=== PATIENT | male | born 1980 | race Caucasian/White ===

== ENCOUNTER 2024-03-02 19:39 | Emergency (ER) | payer OTHER, MEDICARE ==
--- NOTE | 2024-03-02 20:28 | ED ---
Extremity Problem HPI - General Source: patient, RN notes reviewed Mode of arrival: ambulatory Limitations: language barrier, physical limitation <Laura Zayas - Last Filed: 03/02/24 20:27> <Santana Cheng - Last Filed: 03/03/24 00:10> - General Chief complaint: Extremity Problem,Nontraumatic Stated complaint: Finger pain Time Seen by Provider: 03/02/24 19:59 - History of Present Illness Initial comments: Quick [id number] male presenting with right third and fourth digit pain on right hand for several months. States he cannot flex his fingers. (Laura Zayas) 43-year-old male presented to the ED with a chief complaint of finger pain. Patient reports for the past few months has had pain of his right fourth finger and decreased range of motion of it. Reports that he is unable to fully flex his finger. No fever or chills. No injury or trauma. No other complaints at this time. Of note, patient is deaf however is able to read lips. (Santana Cheng) - Related Data Previous Rx's Medication Instructions Recorded Ibuprofen [Motrin] 600 mg PO Q8HR PRN #30 tab 03/03/24 Allergies Allergy/AdvReac Type Severity Reaction Status Date / Time No Known Allergies Allergy Verified 03/02/24 19:58 Review of Systems ROS Other: All systems not noted in ROS Statement are negative. <Laura Zayas - Last Filed: 03/02/24 20:27> ROS Other: All systems not noted in ROS Statement are negative. <Santana Cheng - Last Filed: 03/03/24 00:10> ROS Statement: Those systems with pertinent positive or pertinent negative responses have been documented in the HPI. Past Medical History Past Medical History: Hearing Disorder / Deafness History of Any Multi-Drug Resistant Organisms: None Reported Past Surgical History: No Surgical Hx Reported Past Psychological History: No Psychological Hx Reported Smoking Status: Never smoker Past Alcohol Use History: None Reported Past Drug Use History: None Reported <Laura Zayas - Last Filed: 03/02/24 20:27> General Exam Limitations: language barrier, physical limitation <Laura Zayas - Last Filed: 03/02/24 20:27> Limitations: language barrier General appearance: alert, in no apparent distress Neck exam: Present: normal inspection Respiratory exam: Present: normal lung sounds bilaterally Cardiovascular Exam: Present: regular rate GI/Abdominal exam: Present: soft Extremities exam: Present: other (Right fourth finger difficulties fully flexing actively however full passive flexion. Able to actively extend without difficulty. Strength and sensation intact. Radial pulses intact bilaterally.) Neurological exam: Present: alert, oriented X3 Skin exam: Present: warm, dry <Santana Cheng - Last Filed: 03/03/24 00:10> - General Exam Comments Initial Comments: Visual Physical Exam Vital signs reviewed General: Well-appearing, nontoxic, no acute distress. Head: Normocephalic, atraumatic Eyes: PERRLA, EOMI ENT: Airway patent Chest: Nonlabored breathing Skin: No visual rash, normal skin tone Neuro: Alert and oriented 3 Musculoskeletal: No gross abnormalities (Laura Zayas) Course Vital Signs 03/02/24 19:59 Temperature 98.1 F Pulse Rate 92 Respiratory 17 Rate Blood Pressure 143/93 O2 Sat by Pulse 99 Oximetry Medical Decision Making <Laura Zayas - Last Filed: 03/02/24 20:27> <Santana Cheng - Last Filed: 03/03/24 00:10> - Medical Decision Making I completed the quick note portion of this chart signed Laura Zayas PA-C (Laura Zayas) Was pt. sent in by a medical professional or institution (KURT Johnston, MULTIFOCAL LENS INSPECTOR, urgent care, hospital, or detention...) When possible be specific @ -No Did you speak to anyone other than the patient for history (EMS, parent, family, police, friend...)? What history was obtained from this source @ -No Did you review nursing and triage notes (agree or disagree)? Why? @ -I reviewed and agree with nursing and triage notes Were old charts reviewed (outside hosp., previous admission, EMS record, old EKG, old radiological studies, urgent care reports/EKG's, detention records)? Report findings @ -No old charts were reviewed Differential Diagnosis (chest pain, altered mental status, abdominal pain women, abdominal pain men, vaginal bleeding, weakness, fever, dyspnea, syncope, headache, dizziness, GI bleed, back pain, seizure, CVA, palpatations, mental health, musculoskeletal)? @ -Differential Musculoskeletal Muscular strain, contusion, ligament sprain, fracture, arthritis, septic arthritis, bursitis, cellulitis, muscle spasm, nerve compression, DVT, arterial occlusion, herpes zoster, electrolyte abnormality, tumor.... This is not meant to be in all inclusive list EKG interpreted by me (3pts min.). @ -None X-rays interpreted by me (1pt min.). @ -X-ray of the hand interpreted me which revealed no evidence of acute finding. CT interpreted by me (1pt min.). @ -None done U/S interpreted by me (1pt. min.). @ -None done What testing was considered but not performed or refused? (CT, X-rays, U/S, labs)? Why? @ -None What meds were considered but not given or refused? Why? @ -None Did you discuss the management of the patient with other professionals (pr ofessionals i.e. , PA, MULTIFOCAL LENS INSPECTOR, lab, RT, psych nurse, manager social work, school psychology professor, teacher, aoc airspace control officer, home health care case manager)? Give summary @ -No Was smoking cessation discussed for >3mins.? @ -No Was critical care preformed (if so, how long)? @ -No Were there social determinants of health that impacted care today? How? (Homelessness, low income, unemployed, alcoholism, drug addiction, transportation, low edu. Level, literacy, decrease access to med. care, senior living, rehab)? @ -No Was there de-escalation of care discussed even if they declined (Discuss DNR or withdrawal of care, Hospice)? DNR status @ -No What co-morbidities impacted this encounter? (DM, HTN, Smoking, COPD, CAD, Cancer, CVA, ARF, Chemo, Hep., AIDS, mental health diagnosis, sleep apnea, morbid obesity)? @ -None Was patient admitted / discharged? Hospital course, mention meds given and route, prescriptions, significant lab abnormalities, going to OR and other pertinent info. @ -Discharge 43-year-old male presented to the ED with complaints of right fourth finger pain for the past few months. No fever or chills. On examination full passive flexion with active extension intact. Strength and sensation intact. Radial pulses intact bilaterally. Provided prescription for ibuprofen and advised close follow-up with his PCP. Undiagnosed new problem with uncertain prognosis? @ -No Drug Therapy requiring intensive monitoring for toxicity (Heparin, Nitro, Insulin, Cardizem)? @ -No Were any procedures done? @ -No Diagnosis/symptom? @ -Finger pain Acute, or Chronic, or Acute on Chronic? @ -Acute on chronic Uncomplicated (without systemic symptoms) or Complicated (systemic symptoms)? @ -Uncomplicated Side effects of treatment? @ -No Exacerbation, Progression, or Severe Exacerbation? @ -No Poses a threat to life or bodily function? How? (Chest pain, [place], [place], pneumonia, PE, COPD, DKA, ARF, appy, cholecystitis, CVA, Diverticulitis, Homicidal, Suicidal, threat to staff... and all critical care pts) @ -No (Santana Cheng) Disposition <Laura Zayas - Last Filed: 03/02/24 20:27> Is patient prescribed a controlled substance at d/c from ED?: No Time of Disposition: 00:10 <Santana Cheng - Last Filed: 03/03/24 00:10> Clinical Impression: Finger pain Disposition: HOME SELF-CARE Condition: Good Additional Instructions: Please return to the Emergency Department if symptoms worsen or any other concerns. Please follow-up with your PCP or orthopedics. Prescriptions: Ibuprofen [Motrin] 600 mg PO Q8HR PRN #30 tab PRN Reason: Pain Referrals: None,Stated [Primary Care Provider] - 1-2 days Flora Tam DO [Doctor of Osteopathic Medicine] - 1-2 days
--- NOTE | 2024-03-02 23:40 | XR ---
EXAMINATION TYPE: XR hand complete RT DATE OF EXAM: 03/02/2024 CLINICAL HISTORY: right hand pain most prominent in fourth finger TECHNIQUE: Frontal, lateral and oblique images of the right hand are obtained. COMPARISON: None. FINDINGS: There is no acute fracture/dislocation evident in the right hand. The joint spaces in the right hand appear within normal limits. Mild diffuse soft tissue swelling over the phalanges is prese nt. IMPRESSION: As above.
[2024-03-03] MEDS: KETOROLAC 15 MG/ML 1 ML VIAL IM STA (00:10)
[2024-03-03 01:00] VITALS: BP 140/88; PULSE 85; RESP 18; TEMP 98.2
== END 2024-03-03 00:17 | disposition home or self-care (01) ==
LOC: EC 19:39
DX: M79.644 Pain in right finger(s) (principal)
CPT/HCPCS: 96372; 99283